=== PATIENT | female | born 1940 | race Caucasian/White ===

== ENCOUNTER 2016-10-24 12:47 | Emergency (ER) | payer OTHER ==
[~2016-10-24] VITALS: Ht 167.6 cm; Wt 100.3 kg
[~2016-10-24 12:47] MED LIST: ACETAMINOPHEN1 EAC4 PO; ALLEGRA180 MG PO; ASMANEX TW30 INHALAT IH; AVAPRO150 MG PO; Bactrim,Septra DS 80 PO; CARDURA4 MG PO; CLEOCIN300 MG PO; COUMADIN3 MG PO; COUMADIN4 MG PO; Ceftin PO; Cepacol Lozenge, Sor MM; Coumadin,Jantoven PO; DIGOXIN250 MCG PO; DILTIAZEM 24HR300 MG PO; DUONEB 2.5-0.5 M3 ML IH; DuoNeb IH; FEXOFENADINE H180 MG PO; FISH OIL 1,001000 M1 PO; Fish Oil PO; GLIPIZIDE5 MG PO; Glucotrol PO; Hyzaar 100-25 PO; JANTOVEN2 MG PO; JANTOVEN3 MG PO; JANTOVEN4 MG PO; KLOR-CON 1010 ME1 PO; KLOR-CON M1010 MEQ PO; LANOXIN250 MCG PO; LASIX20 MG PO; LASIX40 MG PO; LEVOTHROID88 MCG PO; LEVOTHYROXINE88 MCG PO; LIPITOR80 MG PO; LOSARTAN-HCTZ1 EAC1 PO; Levothroid,Synthroid PO; Lovenox SC; OMEGA 3 1,0001 EACH PO; OMEPRAZOLE20 MG PO; PriLOSEC PO; SILVADENE20 GM TP; SIMVASTATIN20 MG PO; TAMIFLU75 MG PO; TRAMADOL HCL50 MG PO; TRICOR48 MG PO; Tylenol Regular Stre PO; Ultram PO; VENTOLIN HFA18 GM IH; VITAMIN B-650 M1 PO; Zocor PO
[2016-10-24 13:11] VITALS: BP 160/73
[2016-10-24 16:37] LABS: HEMATOCRIT 41.5 % (36.0-46.0); MCH 29.7 PG (29.0-34.0); MCV 87.6 FL (83-99); MEAN PLAT.VOLUME 10.1 uM^3 (9.5-12.4); PLATELET COUNT 177 K/uL (156-360); RBC DIS.WIDTH-CV 13.3 % (11.8-14.6); RBC DIS.WIDTH-SD 41.4 % (39-53); RED BLOOD COUNT 4.74 M/uL (3.80-5.20); WHITE BLOOD COUNT 10.3 K/uL (4.1-10.2)
[2016-10-24 16:47] LABS: INTER. NORMALIZED RATIO 2.2; PROTHROMBIN TIME 23.3 (9.2-11.2); PTT 38.6 (25-32)
[2016-10-24 16:48] LABS: CHLORIDE 108 mEq/L (99-109); POTASSIUM 4.3 mEq/L (3.7-5.4)
[2016-10-24 16:49] LABS: SODIUM 140 mEq/L (136-147)
[2016-10-24 16:50] LABS: GLUCOSE 135 mg/dL (70-99)
[2016-10-24 16:52] LABS: ANION GAP 11 MEQ/L (2-14)
[2016-10-24 16:54] LABS: GFR ESTIMATE (CALCULATED) 47 mL/min/
[2016-10-24 16:55] LABS: UREA NITROGEN (BUN) 23 mg/dL (9-23)
== END 2016-10-24 18:08 | disposition left against medical advice (07) ==
LOC: EME 12:47
PROVIDERS: Physician Assistant
DX: L30.9 Dermatitis, unspecified (principal); E11.9 Type 2 diabetes mellitus without complications; E78.5 Hyperlipidemia, unspecified; I10 Essential (primary) hypertension; Z79.01 Long term (current) use of anticoagulants; Z86.711 Personal history of pulmonary embolism; Z88.7 Allergy status to serum and vaccine; Z88.1 Allergy status to other antibiotic agents; Z88.6 Allergy status to analgesic agent
CPT/HCPCS: 80048; 85027; 85610; 85730; 99281; 99284

== ENCOUNTER 2016-11-08 13:59 | Emergency (ER) | payer OTHER ==
[~2016-11-08] VITALS: Ht 167.6 cm; Wt 99.0 kg
[2016-11-08 15:52] LABS: INTER. NORMALIZED RATIO 2.1; PROTHROMBIN TIME 21.8 (9.2-11.2); PTT 37.6 (25-32)
[2016-11-08 16:57] LABS: EOSINOPHIL (%) 0.8 % (0-5); EOSINOPHIL COUNT 0.1 K/uL (0-0.3); HEMATOCRIT 40.1 % (36.0-46.0); IMMATURE GRANULOCYTE (%) 0.4 % (0.0-0.7); IMMATURE GRANULOCYTE COUNT 0.5 K/uL; LYMPHOCYTE COUNT 4.1 K/uL (1.0-2.8); MCH 29.5 PG (29.0-34.0); MCHC 33.4 G/DL (30.0-36.0); MCV 88.1 FL (83-99); MEAN PLAT.VOLUME 11.3 uM^3 (9.5-12.4); MONOCYTE (%) 5.7 % (3-12); MONOCYTE COUNT 0.7 K/uL (0-0.8); NEUTROPHIL (%) 56.7 % (45-76); NEUTROPHIL COUNT 6.5 K/uL (1.8-6.4); PLATELET COUNT 181 K/uL (156-360); RBC DIS.WIDTH-CV 13.3 % (11.8-14.6); RBC DIS.WIDTH-SD 41.9 % (39-53); RED BLOOD COUNT 4.55 M/uL (3.80-5.20); WHITE BLOOD COUNT 11.4 K/uL (4.1-10.2)
[2016-11-08 17:04] LABS: CHLORIDE 107 mEq/L (99-109); POTASSIUM 3.7 mEq/L (3.7-5.4); SODIUM 143 mEq/L (136-147)
[2016-11-08 17:06] LABS: GLUCOSE 126 mg/dL (70-99)
[2016-11-08 17:07] LABS: ANION GAP 9 MEQ/L (2-14)
[2016-11-08 17:08] LABS: TOTAL BILIRUBIN 0.9 mg/dL (0.0-1.0)
[2016-11-08 17:09] LABS: ALKALINE PHOSPHATASE 65 IU/L (3-129)
[2016-11-08 17:10] LABS: GFR ESTIMATE (CALCULATED) 52 mL/min/
[2016-11-08 17:11] LABS: UREA NITROGEN (BUN) 18 mg/dL (9-23)
[2016-11-08 18:26] VITALS: BP 115/79
== END 2016-11-08 18:36 | disposition home or self-care (01) ==
LOC: EME 13:59
PROVIDERS: Orthopaedic Surgery Sports Medicine
DX: I82.401 Acute embolism and thrombosis of unspecified deep veins of right lower extremity (principal); Z79.01 Long term (current) use of anticoagulants; Z86.718 Personal history of other venous thrombosis and embolism; Z86.711 Personal history of pulmonary embolism; J45.909 Unspecified asthma, uncomplicated; E11.9 Type 2 diabetes mellitus without complications; E78.5 Hyperlipidemia, unspecified; I10 Essential (primary) hypertension; Z87.442 Personal history of urinary calculi; K21.9 Gastro-esophageal reflux disease without esophagitis
CPT/HCPCS: 73630; 80053; 85025; 85610; 85730; 99281; 99284

== ENCOUNTER 2017-04-12 10:30 | Emergency (ER) | payer OTHER ==
[~2017-04-12] VITALS: Ht 167.6 cm; Wt 100.1 kg
[2017-04-12 11:18] LABS: MCH 29.2 PG (29.0-34.0); MCHC 33.3 G/DL (30.0-36.0); MCV 87.9 FL (83-99); MEAN PLAT.VOLUME 10.2 uM^3 (9.5-12.4); PLATELET COUNT 153 K/uL (156-360); RBC DIS.WIDTH-CV 13.3 % (11.8-14.6); RBC DIS.WIDTH-SD 42.8 % (39-53); RED BLOOD COUNT 4.55 M/uL (3.80-5.20); WHITE BLOOD COUNT 7.5 K/uL (4.1-10.2)
[2017-04-12 11:24] LABS: INTER. NORMALIZED RATIO 2.7; PROTHROMBIN TIME 30.7 SEC (10.2-12.9)
[2017-04-12 11:27] LABS: PTT 45.4 SEC (25-37)
[2017-04-12 13:36] VITALS: BP 121/72
== END 2017-04-12 13:54 | disposition home or self-care (01) ==
LOC: EME 10:30
PROVIDERS: Nurse Practitioner Family
DX: R60.0 Localized edema (principal); Z86.718 Personal history of other venous thrombosis and embolism; Z86.79 Personal history of other diseases of the circulatory system; Z79.01 Long term (current) use of anticoagulants; E78.5 Hyperlipidemia, unspecified; I10 Essential (primary) hypertension; J45.909 Unspecified asthma, uncomplicated; K21.9 Gastro-esophageal reflux disease without esophagitis; Z88.7 Allergy status to serum and vaccine; Z87.442 Personal history of urinary calculi; Z88.6 Allergy status to analgesic agent; Z90.49 Acquired absence of other specified parts of digestive tract
CPT/HCPCS: 73630; 85027; 85610; 85730; 93971; 99281; 99284

== ENCOUNTER → 2017-05-24 | Outpatient (CLI) | payer OTHER | END | disposition home or self-care (01) | LOC: RAD 09:46 | DX: I82.401 Acute embolism and thrombosis of unspecified deep veins of right lower extremity (principal); M79.661 Pain in right lower leg | CPT/HCPCS: 93971 ==

== ENCOUNTER 2018-04-04 14:14 | Observation (INO) | payer OTHER ==
[~2018-04-04] VITALS: Ht 167.6 cm; Wt 99.8 kg
[~2018-04-04 14:14] MED LIST changes: +ALLEGRA ALLERG180 MG PO; -ALLEGRA180 MG PO; +JANTOVEN1 MG PO; -JANTOVEN2 MG PO; +K-DUR20 MEQ PO; -KLOR-CON 1010 ME1 PO; -LEVOTHYROXINE88 MCG PO; +LOVAZA1 GM PO; -OMEGA 3 1,0001 EACH PO; +SYNTHROID75 MCG PO; +VITAMIN B-6100 MG PO; +ZOCOR40 MG PO
[2018-04-04 15:23] LABS: HEMOGLOBIN 13.1 G/DL (11.9-15.5); MCH 29.3 PG (29.0-34.0); MCHC 33.6 G/DL (30.0-36.0); MCV 87.2 FL (83-99); PLATELET COUNT 140 K/uL (156-360); RBC DIS.WIDTH-CV 13.2 % (11.8-14.6); RBC DIS.WIDTH-SD 42.4 % (39-53); RED BLOOD COUNT 4.47 M/uL (3.80-5.20); WHITE BLOOD COUNT 8.2 K/uL (4.1-10.2)
[2018-04-04 15:32] LABS: CHLORIDE 109 mEq/L (99-109); POTASSIUM 4.4 mEq/L (3.7-5.4); SODIUM 142 mEq/L (136-147)
[2018-04-04 15:33] LABS: GLUCOSE 113 mg/dL (70-99)
[2018-04-04 15:37] LABS: CREATININE 0.8 mg/dL (0.6-1.3); GFR ESTIMATE (CALCULATED) > 59 mL/min/
[2018-04-04 15:38] LABS: UREA NITROGEN (BUN) 17 mg/dL (9-23)
[2018-04-04 15:45] LABS: TROP-I INTERPRETATION NEGATIVE; TROPONIN-I < 0.01 ng/mL (0.0-0.30)
[2018-04-04] MEDS ORDERED: JANTOVEN1 MG PO (17:08)
[2018-04-04] MEDS ORDERED: VITAMIN D32000 UNI1 PO (17:09)
[2018-04-04] MEDS ORDERED: ARNUITY ELLIP200 MCG IH (17:10)
[2018-04-04] MEDS ORDERED: NOVOLOG MI100 UNIT/2 SC ×3 (17:10)
[2018-04-04] MEDS ORDERED: UROCIT-K15 MEQ PO (17:11)
[2018-04-04] MEDS ORDERED: LOTENSIN5 MG PO (17:11)
[2018-04-04] MEDS ORDERED: PROTONIX40 MG PO (17:11)
[2018-04-04 17:27] LABS: PTT 43.4 SEC (25-37)
[2018-04-04 18:50] LABS: APPEARANCE CLEAR ((CLEAR)); BILIRUBIN NEGATIVE; BLOOD MODERATE; COLOR YELLOW ((YELLOW)); GLUCOSE (STRIP) NEGATIVE; KETONES NEGATIVE; LEUKOCYTES NEGATIVE; NITRITE NEGATIVE; PROTEIN (STRIP) NEGATIVE; UROBILINOGEN 0.2 MG/DL (0.2-1.0)
[2018-04-04 19:00] LABS: ALBUMIN 3.8 g/dL (3.2-4.8)
[2018-04-04 19:03] LABS: TOTAL PROTEIN 6.4 g/dL (6.4-8.3)
[2018-04-04 19:03] LABS: BACTERIA RARE /HPF; EPITHELIAL CELLS 1+ /HPF; MUCUS TRACE /LPF; RED BLOOD CELLS TNTC /HPF (0-5); WHITE BLOOD CELLS 0-5 /HPF (0-5)
[2018-04-04 19:05] LABS: TOTAL BILIRUBIN 0.8 mg/dL (0.0-1.0)
[2018-04-04 19:06] LABS: ALKALINE PHOSPHATASE 67 IU/L (3-129)
[2018-04-04 19:08] LABS: AST (GOT) 27 IU/L (2-34); DIRECT BILIRUBIN 0.2 mg/dL (0.0-0.3)
[2018-04-04 19:09] LABS: ALT (GPT) 33 IU/L (3-49)
[2018-04-04 19:15] LABS: DIGOXIN 0.6 ng/mL (0.8-2.0)
[2018-04-04 19:58] VITALS: BP 145/67
[2018-04-04 23:26] LABS: TROP-I INTERPRETATION NEGATIVE; TROPONIN-I < 0.01 ng/mL (0.0-0.30)
[2018-04-04 23:44] VITALS: BP 124/59
[2018-04-05 03:51] VITALS: BP 130/59
[2018-04-05 03:55] LABS: TROP-I INTERPRETATION NEGATIVE; TROPONIN-I < 0.01 ng/mL (0.0-0.30)
[2018-04-05 05:18] LABS: BASOPHIL (%) 0.5 % (0-1); EOSINOPHIL (%) 0.8 % (0-5); EOSINOPHIL COUNT 0.1 K/uL (0-0.3); HEMATOCRIT 37.3 % (36.0-46.0); IMMATURE GRANULOCYTE (%) 0.6 % (0.0-0.7); LYMPHOCYTE (%) 47.9 % (15-42); LYMPHOCYTE COUNT 4.1 K/uL (1.0-2.8); MCH 28.6 PG (29.0-34.0); MCHC 32.2 G/DL (30.0-36.0); MONOCYTE (%) 6.4 % (3-12); MONOCYTE COUNT 0.6 K/uL (0-0.8); NEUTROPHIL (%) 43.8 % (45-76); NEUTROPHIL COUNT 3.8 K/uL (1.8-6.4); PLATELET COUNT 134 K/uL (156-360); RBC DIS.WIDTH-CV 13.3 % (11.8-14.6); RBC DIS.WIDTH-SD 43.4 % (39-53); RED BLOOD COUNT 4.19 M/uL (3.80-5.20); WHITE BLOOD COUNT 8.6 K/uL (4.1-10.2)
[2018-04-05 05:43] LABS: CHLORIDE 109 MEQ/L (99-109); CREATININE 0.8 MG/DL (0.6-1.3); GFR ESTIMATE (CALCULATED) > 59 mL/min/; GLUCOSE 121 mg/dL (70-99); POTASSIUM 3.9 MEQ/L (3.7-5.4); SODIUM 142 MEQ/L (136-147); UREA NITROGEN (BUN) 16 mg/dL (9-23)
[2018-04-05 10:43] LABS: ERTH.SED.RATE 14 MM/HR (0-30)
[2018-04-05 11:22] VITALS: BP 141/65
[2018-04-05 19:25] VITALS: BP 166/753
[2018-04-06 00:23] VITALS: BP 136/64
[2018-04-06 03:21] VITALS: BP 117/58
[2018-04-06 06:06] LABS: INTER. NORMALIZED RATIO 2.7
[2018-04-06 07:49] VITALS: BP 149/65
[2018-04-06 11:47] VITALS: BP 134/64
[2018-04-06 15:37] VITALS: BP 133/63
[2018-04-06 23:33] VITALS: BP 136/63
[2018-04-07 03:55] VITALS: BP 151/67
[2018-04-07 05:48] LABS: INTER. NORMALIZED RATIO 2.6
[2018-04-07 08:00] VITALS: BP 162/69
[2018-04-07 08:46] LABS: FOLIC ACID (FOLATE) 5.6 NG/ML (5.0-22.0)
[2018-04-07] MEDS ORDERED: ANTIVERT25 MG PO (10:34)
[2018-04-07 12:45] VITALS: BP 171/87
== END 2018-04-07 15:28 | disposition home or self-care (01) ==
LOC: EME 14:14 → EDOF 18:06 → 4SOUTH 18:06 → ENRESERV 18:07 → 4SOUTH 19:38 → ENPENDDIS 04-07 12:57 → 4SOUTH 04-07 15:28
PROVIDERS: Emergency Medicine; Hospitalist; Internal Medicine; Nurse Practitioner Adult Health
PROC: B246ZZZ Ultrasonography of Right and Left Heart (ICD-10-PCS; principal; 2018-04-05)
DX: R55 Syncope and collapse (principal); Z86.718 Personal history of other venous thrombosis and embolism; Z86.711 Personal history of pulmonary embolism; Z79.01 Long term (current) use of anticoagulants; E86.0 Dehydration; H65.91 Unspecified nonsuppurative otitis media, right ear; I10 Essential (primary) hypertension; I48.2 Chronic atrial fibrillation; Z98.890 Other specified postprocedural states; E11.40 Type 2 diabetes mellitus with diabetic neuropathy, unspecified; J44.9 Chronic obstructive pulmonary disease, unspecified; E03.9 Hypothyroidism, unspecified; Z87.440 Personal history of urinary (tract) infections; E78.5 Hyperlipidemia, unspecified; I87.2 Venous insufficiency (chronic) (peripheral); D64.9 Anemia, unspecified; K21.9 Gastro-esophageal reflux disease without esophagitis; E04.2 Nontoxic multinodular goiter; E66.9 Obesity, unspecified; Z96.643 Presence of artificial hip joint, bilateral; Z90.49 Acquired absence of other specified parts of digestive tract; Z87.442 Personal history of urinary calculi; Z88.1 Allergy status to other antibiotic agents; Z88.5 Allergy status to narcotic agent; Z88.6 Allergy status to analgesic agent; Z88.7 Allergy status to serum and vaccine; Z88.8 Allergy status to other drugs, medicaments and biological substances; Z80.1 Family history of malignant neoplasm of trachea, bronchus and lung; Z80.8 Family history of malignant neoplasm of other organs or systems; Z79.84 Long term (current) use of oral hypoglycemic drugs
CPT/HCPCS: 70450; 70551; 71046; 80048; 80076; 80162; 81003; 82607; 82746; 82948; 84484; 85025; 85027; 85610; 85651; 85730; 86140; 93005; 93306; 94640; 94799; 99281; 99285; G0378; G8978 GP CI; G8979 GP CH; G8987 GO CI; G8988 GO CH; J1815; J7030